=== PATIENT | male | born 1975 ===

== ENCOUNTER 2018-03-13 09:38 | Emergency (ER) | payer BC ==
[2018-03-13 09:53] VITALS: BP 125/76; PULSE 85; RESP 20; TEMP 98.5; O2SAT 100
--- NOTE | 2018-03-13 10:16 | C.PDOC ---
History Of Present Illness 42 y/o male presents to the ER complaining of left knee pain which has been present for the past 2 days. Patient states that the pain is mainly in the superficial left lateral patella. 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 Denies having direct trauma, injuries, weakness and numbness. Time Seen by Provider: 03/13/18 10:08 Chief Complaint (Nursing): Lower Extremity Problem/Injury History Per: Patient History/Exam Limitations: no limitations Onset/Duration Of Symptoms: Days Current Symptoms Are (Timing): Still Present Severity: Moderate Past Medical History Reviewed: Historical Data, Nursing Documentation, Vital Signs Vital Signs: Last Vital Signs Temp 98.5 F 03/13/18 09:50 Pulse 85 03/13/18 09:50 Resp 20 03/13/18 09:50 BP 125/76 03/13/18 09:50 Pulse Ox 100 03/13/18 09:50 - Medical History PMH: Hyperlipidemia Surgical History: No Surg Hx Family History: States: No Known Family Hx - Social History Hx Alcohol Use: No Hx Substance Use: Yes - Immunization History Hx Tetanus Toxoid Vaccination: No Hx Influenza Vaccination: No Hx Pneumococcal Vaccination: No Review Of Systems Except As Marked, All Systems Reviewed And Found Negative. Musculoskeletal: Positive for: Other (left knee pain) Neurological: Negative for: Weakness, Numbness Physical Exam - Physical Exam Appears: Non-toxic, No Acute Distress Skin: Normal Color, Warm, Dry Head: Atraumatic, Normacephalic Eye(s): bilateral: Normal Inspection Nose: Normal Oral Mucosa: Moist Neck: Supple Chest: Symmetrical Extremity: Normal ROM (painless ROM in bilateral knees), Tenderness (tenderness to left lateral patellar bursa), Swelling (mild swelling to left lateral patellar bursa), Other (no joint effusion in bilateral kness) Neurological/Psych: Oriented x3, Normal Speech ED Course And Treatment O2 Sat by Pulse Oximetry: 100 (RA) Pulse Ox Interpretation: Normal Medical Decision Making Medical Decision Making: L housemaids knee, patellar bursitis no trauma no joint involvement ice/nsaids educated Disposition Doctor Will See Patient In The: Office Counseled Patient/Family Regarding: Studies Performed, Diagnosis - Disposition Referrals: [facility] [Outside] [facility] [Outside] [facility] [Outside] [facility] [Outside] Disposition: HOME/ ROUTINE Disposition Time: 10:16 Condition: GOOD Additional Instructions: ice packs 1/2 hour per hour, nothing hot motrin/Advil 400 mg every 6 hours as needed Avoid working on your knees without kneepads Instructions: Prepatellar Bursitis (DC), Bursitis (DC) Forms: [facility] (Persian), Work Excuse - Clinical Impression Clinical Impression: Patellar bursitis of left knee - Scribe Statement The provider has reviewed the documentation as recorded by the Andrew Belle Provider Attestation: All medical record entries made by the Andrew were at my direction and personally dictated by me. I have reviewed the chart and agree that the record accurately reflects my personal performance of the history, physical exam, medical decision making, and the department course for this patient. I have also personally directed, reviewed, and agree with the discharge instructions and disposition.
== END 2018-03-13 10:46 | disposition home or self-care (01) ==
LOC: C.ER 09:38
DX: M70.52 Other bursitis of knee, left knee (principal)